=== PATIENT | male | born 1970 | race Asian ===

== ENCOUNTER 2025-04-18 10:10 | Outpatient (AMB) | payer OTHER, SELFPAY ==
--- NOTE | 2025-04-18 10:15 | MHC.OFFVIS ---
Vital Signs 04/18/25 10:20 04/18/25 10:26 Height 5 ft 3 in BP 137/85 Position Sitting Pulse 69 Intake Visit Reasons: 6 mnts Melt House Centrifugal Operator Required: Yes Melt House Centrifugal Operator Services: Melt House Centrifugal Operator Offered & Declined (Family will interpret ) Accompanied by: Family/Other Allergies No Known Allergies Allergy (Verified 04/18/25 10:21) Medication List - Last Reconciled 04/18/25 by Odette Zapata CNP atorvastatin 20 mg PO DAILY famotidine 20 mg PO BID losartan 50 mg PO DAILY memantine 10 mg PO BID multivitamin with folic acid 400 mcg (Daily-Stephen (with folic acid)) 1 tab PO DAILY oxycodone-acetaminophen 5-325 mg 1 tab PO BEDTIME PRN pantoprazole mg PO phenazopyridine 200 mg PO TID PRN pyridoxine (vitamin B6) 50 mg PO DAILY quetiapine 25 mg PO TID sertraline 50 mg PO DAILY tamsulosin 0.4 mg PO BEDTIME thiamine HCl (vitamin B1) 100 mg PO BID HPI Comments Details: 55-year-old man with h/o alcohol abuse, with h/o left PCom aneurysm coiling at [facility] in Jul. Since then, his right side was weak and he had difficulty talking. He could understand but could not speak much. He was doing okay. He occasionally had some lightheadedness that lasted few minutes. Balance was okay, no falls. No headaches. Mood was okay. He was emotional at times, and could become frustrated and agitated at times when he was trying to say something that was not understood.?He was still sleeping a lot during the day and was up during the night. [facility] Medical History (Updated 04/18/25 @ 10:19 by Odette Zapata CNP) Cerebral aneurysm Encephalopathy Depression H/O alcohol abuse Insomnia Aphasia Vascular dementia Review of Systems Const Denies chills, Denies daytime sleepiness, Reports difficulty sleeping, Denies fatigue, Denies fever(s), Denies frequent falls, Denies headache(s), Denies increased appetite, Denies poor appetite, Denies snoring, Denies weakness, Denies weight gain and Denies weight loss Eyes Denies loss of vision ENT Denies vertigo, Denies dizziness and Denies headache(s) Card Denies chest pain at rest, Denies chest pain with activity, Denies syncope, Denies leg edema and Denies palpitations Resp Denies snoring GI Denies constipation, Denies heartburn, Denies diarrhea and Denies nausea Denies urinary frequency, Denies urinary incontinence and Denies urinary urgency Musc Denies abnormal gait, Denies numbness and Denies tingling Skin/Breast Denies dry skin and Denies rash Neuro Denies abnormal gait, Denies vertigo, Denies dizziness, Denies syncope, Denies frequent falls, Denies headache(s), Denies lack of coordination, Denies loss of vision, Reports memory loss, Denies numbness, Denies restless legs, Denies seizure-like activity, Denies tingling, Denies paresthesias, Denies tremor(s) and Denies weakness Psych Reports anxiety, Reports depression, Denies auditory hallucinations, Reports memory loss, Denies visual hallucinations and Denies suicidal ideation Endo Denies fatigue and Denies palpitations Physical Exam Const Other: General Appearance:? normal, in no acute distress. Skin:? no rashes, no significant birthmarks. Heart:? S1, S2 normal, no murmurs. Lungs:? clear anteriorly and posteriorly. Extremities:? no edema. Psych:? alert, cooperative with exam. Neuro Other: Mental Status:?Alert and awake with minimal speech. He did not speak [place]ian, but even in his [place] language, family did not understand him. Has trouble following commands. Cranial Nerves:?Pupils are equal, round and reactive to light. External occular muscles are intact. Visual johnson are full. Face is symmetrical. Facial sensations are normal. Tongue is midline. Palate elevates symmetrically. Shoulder shrugging is normal. Hearing to bedside conversation is normal. Motor Examination:?R hemiparesis Sensory Exam:?....? Coordination:?No ataxia,?no titubation.? Gait Exam: Within normal limits. Extrapyramidal System:?No tremor, rigidity with normal facial expressions.? Pronator Drift:?Not present.? Involuntary Movements:?No tremors seen.? Speech:?Decreased. Results Reviewed Results Reviewed: EEG at off in March 2023: OK CT neck at [facility] in Jul 2022: ok CTA Brain WO at [facility] in Jul: 9mm L Pcom and 3mm R Pcom aneurysms Assessment & Plan Assessment & Plan (1) Vascular dementia: Code(s): F01.50 - Vascular dementia, unspecified severity, without behavioral disturbance, psychotic disturbance, mood disturbance, and anxiety Category: Medical Qualifiers: Dementia severity: unspecified severity Dementia behavioral or psychological symptom: unspecified whether behavioral, psychotic, or mood disturbance or anxiety Qualified Code(s): F01.50 - Vascular dementia, unspecified severity, without behavioral disturbance, psychotic disturbance, mood disturbance, and anxiety Plan: Continue memantine 10mg 1 table twice a day (2) Aphasia: Code(s): R47.01 - Aphasia Category: Medical Plan . Medications: New memantine 10 mg PO BID 180 tabs 1RF 90 days Discontinued memantine Discontinued Reason: Order 10 mg PO BID Coding Level of Care Code Est Pt Level 3 (87476) Diagnoses Vascular dementia, unspecified dementia severity, unspecified whether behavioral, psychotic, or mood disturbance or anxiety F01.50 Dementia severity: unspecified severity Dementia behavioral or psychological symptom: unspecified whether behavioral, psychotic, or mood disturbance or anxiety Aphasia R47.01
[2025-04-18 10:26] VITALS: BP 137/85; PULSE 69
--- OUTSIDE RECORDS SUMMARY | 2025-04-18 11:07 | XMS_ITS | Clinical Summary ---
Author Organization [facility] Address [address] [place] [address] Phone Care Team Providers Care Art Consultant Name Role Phone Antonia Guallpa MD Primary Care Provider [phone] Allergies Active Allergy Reactions Criticality Noted Date Comments Trazodone Cramps High 11/23/2018 Medications valproic acid (DEPAKENE) 250 mg capsule Take 2 Capsules by mouth 3 times daily. 06/21/20 24 Active thiamine 100 mg tablet Take 1 Tablet by mouth 2 times daily. 06/21/20 24 Active multivit-min/iro n/folic acid/K (ADULTS MULTIVITAMIN ORAL) Take 1 Tablet by mouth daily. 06/21/20 24 Active memantine (NAMENDA) 10 mg tablet Take 1 Tablet by mouth 2 times daily. Active desmopressin (DDAVP) 0.2 mg tablet TAKE ONE TABLET BY MOUTH IN THE EVENING 06/19/20 Active flavoxATE (URISPAS) 100 mg tablet TAKE ONE TABLET BY MOUTH EVERY 6 HOURS 06/19/20 20 Active phenazopyridine (PYRIDIUM) 200 mg tabletIndication s:Bladder spasms Take 1 tablet (200 mg total) by mouth 3 (three) times a day if needed for bladder spasms. 90 tablet 3 11/08/19 25 Active oxyCODONE-acetam inophen (PERCOCET) 5-325 mg per tablet Take 1 tablet by mouth at bedtime as needed for severe pain. Max Daily Amount: 1 tablet 28 tablet 03/07/20 25 Active atorvastatin (LIPITOR) 20 mg tablet Take 1 tablet (20 mg total) by mouth 1 (one) time each day. 90 tablet 3 03/15/20 25 Active famotidine (PEPCID) 20 mg tablet Take 1 tablet (20 mg total) by mouth 2 (two) times a day. 180 tablet 3 03/15/20 25 Active losartan (COZAAR) 50 mg tablet Take 1 tablet (50 mg total) by mouth 1 (one) time each day. 90 tablet 3 03/15/20 25 Active pantoprazole (PROTONIX) 40 mg EC tablet Take 1 tablet (40 mg total) by mouth 1 (one) time each day before breakfast. Do not crush, chew, or split. 30 tablet 5 03/15/20 25 Active QUEtiapine (SEROquel) 25 mg tablet Take 1 tablet (25 mg total) by mouth 3 (three) times a day. 45 tablet 5 03/29/20 25 Active QUEtiapine (SEROquel) 25 mg tablet Take 0.5 Tablets by mouth 3 times daily. 06/21/20 24 025 Discontinued Active Problems Problem Noted Date Diagnosed Date Vocal cord dysfunction 03/15/2025 Pre-op evaluation 11/17/2024 Assessment & Plan (11/17/2024 9:06 AM EST): Still not quite clear why they requested a preoperative evaluation but the patient does have some risk factors for coronary artery disease he is asymptomatic he can generate 4 METS of activity without chest pain or discomfort. He has never had any cardiovascular history. The chart keeps mentioning Brugada syndrome which is slightly more common in the population. But with the patient actually has is a early repolarization pattern which is fairly common in the population. He has had no symptomatic arrhythmias there is a high prevalence in the general population as usually incidental finding. The recommendations is for patients with incidental finding of early repolarization pattern on EKG without symptoms or evidence of ectopy after being hospitalized for such a prolonged period of time the recommendation is observation without therapy As far as his cardiovascular risks for coronary artery issues he has a Patel perioperative assessment risk of less than 1% for perioperative cardiac event As far as his hypertension is concerned his control is already in place with medical management. Asthma 08/26/2024 Hemorrhagic stroke (CMS/HCC V24, CMS/HCC V28) Chronic interstitial cystitis 05/25/2018 Hypertension 05/25/2018 Hypertriglyceridemia 05/25/2018 Lung nodule 07/26/2017 Depression 04/30/2017 Insomnia 04/30/2017 Esophageal reflux 01/27/2017 Vitamin D deficiency 04/22/2015 Gout 04/19/2015 Chronic constipation 01/01/2015 Rectal prolapse 11/05/2014 Brugada syndrome 06/08/2014 Allergic rhinitis 05/17/2014 Internal hemorrhoids 12/12/2013 Enlargement of liver 08/02/2013 Overview (08/26/2024): Left Lobe enlarged on CT BPH (benign prostatic hyperplasia) 07/28/2013 Nicotine dependence 12/25/2011 Encounters Date Type Department Care Team Description 03/15/2025 9:00 AM EDT Office Visit Internal Medicine [address] [phone] Antonia Guallpa MD Primary hypertension (Primary Dx); Hypertriglyceridemia; Gastroesophageal reflux disease, unspecified whether esophagitis present; Chronic interstitial cystitis; Vocal cord dysfunction 03/15/2025 Telephone Internal Medicine [facility] [address] [facility] [address] [place] [phone] Antonia Guallpa MD faxed order (L&C) 03/14/2025 Telephone Internal Medicine [facility] [address] [facility] [address] [place] [phone] Hong Willson [place] Appointment Reminder from Last 3 Months Immunizations Name Administration Dates Next Due MMR, measles mumps and rubel la Live (Priorix; M-M-R II) 12mo and older 05/25/2011,03/24/2011 Moderna SARS-CoV-2 COVID-19, mRNA, LNP-S, preservative free 04/24/2021,03/27/2021 Pneumococcal polysaccharide 23 valent (Pneumovax 23) 2yo and older 11/26/2011 Tdap Tetanus diptheria acell ular pertussis (Boostrix; Adacel) 7yo and older 11/26/2011 Surgical History Surgery Date Site/Laterality Comments COLONOSCOPY 2022 PROCEDURE: HISTORICAL COLONOSCOPY; COMMENT: rectal scar with prominent folds c/w previous surgery FEMORAL BYPASS to bring more blodflow to brain after stroke Medical History Medical History Date Comments Allergic rhinitis 05/17/2014 DX:Allergic rh initis Asthma DX:Asthma BPH (benign prostatic hyperplasia) 07/28/2013 DX:BPH (benign prostatic hyperplasia) Brugada syndrome 06/08/2014 DX:Brugada synd christiano Chronic constipation 01/01/2015 DX:Chronic constipation Chronic interstitial cystitis 05/25/2018 DX :Chronic interstitial cystitis Depression 04/30/2017 DX:Depression Enlargement of liver 08/02/2013 DX:Enlargem ent of liver; COMMENT: Left Lobe enlarged on CT Esophageal reflux 01/27/2017 DX:Esophageal reflux Gout 04/19/2015 DX:Gout History of treatment for tuberculosis 11/23/2018 DX:History of treatment for tuberculosis; COMMENT: 9 month treatment Hypertension 05/25/2018 DX:Hypertension Hypertriglyceridemia 05/25/2018 DX:Hypertri glyceridemia Insomnia 04/30/2017 DX:Insomnia Internal hemorrhoids 12/12/2013 DX:Internal hemorrhoids Lung nodule 07/26/2017 DX:Lung nodule Nicotine dependence 12/25/2011 DX:Nicotine dependence Rectal prolapse 11/05/2014 DX:Rectal prolap se Vitamin D deficiency 04/22/2015 DX:Vitamin D deficiency Feeding by G-tube (CMS/HCC V 24, CMS/HCC V28) DX:Feeding by G-tube ([facility]) CVA (cerebral vascular accid ent) (CMS/HCC V24, CMS/HCC V28) DX:CVA (cerebral vascular accident) ([facility]) Inability to speak DX:Inability to speak Functional dyspepsia DX:Function al dyspepsia History of CVA (cerebrovascular accident) DX:History of CVA (cerebrovascular accident) History of transfusion Chronic pain disorder Social History Tobacco Use Types Packs/Day Years Used Date Smoking Tobacco: Never Smokeless Tobacco: Never Alcohol Use Standard Drinks/Week Comments Not Currently 0 (1 standard drink = 0.6 oz pur e alcohol) Sex and Gender Information Value Date Recorded Sex Assigned at Male 09/30/2024 5:55 PM EST Legal Sex Male 9:17 AM EST Gender Identity Male 09/30/2024 5:55 PM EST Sexual Orientation Straight 09/30/2024 5: 55 PM EST Obstetrics History Last Filed Vital Signs Vital Sign Reading Time Taken Comments Blood Pressure 108/82 03/15/2025 8:55 AM EDT Pulse 75 03/15/2025 8:55 AM EDT Temperature 36.3 C (97.3 F) 03/15/2025 8:55 AM EDT Respiratory Rate 18 09/30/2024 9:19 PM EST Oxygen Saturation 99% 03/15/2025 8:55 AM EDT Inhaled Oxygen Concentration - - Weight 63 kg (139 lb) 03/15/2025 8:55 AM EDT Height 165.1 cm (5' 5 ) 11/17/2024 8:09 AM EST Body Mass Index 23.13 11/17/2024 8:09 AM EST Plan of Treatment Upcoming Encounters Date Type Department Care Team (Late st Contact Info) Description 09/13/2025 8:30 AM EST Office Visit Internal Medicine - [place] [address] [place] [address] Antonia Guallpa MD [address] [place] [address] Health Maintenance Due Date Last Done Comments Hepatitis B Vaccines (1 of 3 - 19+ 3-dose series) 1990 Pneumococcal Vaccine: 50+ Years (2 of 2 - PCV) 11/25/2012 11/26/2011 Zoster Vaccines (1 of 2) 2021 DTaP,Tdap,and Td Vaccines (2 - Td or Tdap) 11/25/2021 11/26/2011 HIV Screening 09/05/2022 Hepatitis C Screening 09/05/2022 Social Influencers of Health Screening 09/05/2022 COVID-19 Vaccine ( season) 2024 10/28/2021, 04/24/2021, 03/27/2021 Depression Screening 09/27/2024 06/22/2024 Influenza Vaccine (#1) 2025 Hypertension/CHF/CAD Annual BMP Blood Test 03/15/2026 03/15/2025, 09/30/2024, 06/22/2024, Additional history exists Cholesterol Screening (Lipid Panel) 03/15/2030 03/15/2025, 06/22/2024, 06/22/2024 Colorectal Cancer Screening: Colonoscopy 02/29/2032 2022 MMR Vaccines Aged Out 05/25/2011, 03/24/2011 No lo nger eligible based on patient's age to complete this topic HIB Vaccines Aged Out No longer eligi ble based on patient's age to complete this topic HPV Vaccines Aged Out No longer eligi ble based on patient's age to complete this topic Hepatitis A Vaccines Aged Out No long er eligible based on patient's age to complete this topic IPV Vaccines Aged Out No longer eligi ble based on patient's age to complete this topic Meningococcal ACWY Vaccine Aged Out N o longer eligible based on patient's age to complete this topic Meningococcal B Vaccine Aged Out No l onger eligible based on patient's age to complete this topic RSV Immunization Patients Under 20 months Aged Out No longer eligible based on patient's age to complete this topic Varicella Vaccines Aged Out No longer eligible based on patient's age to complete this topic Procedures Procedure Name Priority Date/Time Associated Diagnosis Comments LIPID PANEL WITH REFLEX TO DIRECT LDL Routine 03/15/2025 9:25 AM EDT Primary hypertension Hypertriglyceridem ia COMPREHENSIVE METABOLIC PANEL Routine 03/15/2025 9:25 AM EDT Primary hypertension Hypertriglyceridem ia DEPRESSION SCREENING Routine 06/22/2024 COLONOSCOPY Routine 2022 from Last 3 Months or Most Recently Relevant to Health Maintenance Results * (ABNORMAL) Lipid panel with reflex to direct LDL (03/15/2025 9:25 AM EDT) Cholesterol 147 0 - 200 mg/dL LAB CHEMISTRY METHOD 03/15/2025 3:10 PM EDT [facility] Triglycerides 315(H) 0 - 150 mg/dL LAB CHEMISTRY METHOD 03/15/2025 3:10 PM EDT [facility] HDL 42 >=40 mg/dL LAB CHEMISTRY METHOD 03/15/2025 3:10 PM EDT [facility] LDL Calculated 42 0 - 100 mg/dL LAB CHEMISTRY METHOD 03/15/2025 3:10 PM EDT [facility] VLDL Cholesterol Usama 63 mg/dL LAB CHEMISTRY METHOD 03/15/2025 3:10 PM EDT [facility] Non HDL Chol. (LDL+VLDL) 105 <145 mg/dL LAB CHEMISTRY METHOD 03/15/2025 3:10 PM EDT [facility] Chol/HDL Ratio 3.5 0.0 - 4.4 LAB CHEMISTRY METHOD 03/15/2025 3:10 PM T [facility] Blood Venous blood specimen / Unknown Venipuncture / Unknown 03/15/2025 9:25 AM EDT 03/15/2025 9:25 AM EDT us Antonia Guallpa MD LAB BLOOD ORDERABLES Final Res ult [facility] [address] [place] [address], [place] [phone] * Comprehensive metabolic panel (03/15/2025 9:25 AM EDT) Sodium 143 133 - 145 mmol/L LAB CHEMISTRY METHOD 03/15/2025 3:10 PM [facility] Potassium 4.1 3.5 - 5.5 mmol/L LAB CHEMISTRY METHOD 03/15/2025 3:10 PM [facility] Chloride 107 96 - 110 mmol/L LAB CHEMISTRY METHOD 03/15/2025 3:10 PM [facility] CO2 28 21 - 32 mmol/L LAB CHEMISTRY METHOD 03/15/2025 3:10 PM [facility] Anion Gap 8 3 - 11 LAB CHEMISTRY METHOD 03/15/2025 3:10 PM [facility] Glucose 86 70 - 100 mg/dL LAB CHEMISTRY METHOD 03/15/2025 3:10 PM [facility] BUN 10 5 - 25 mg/dL LAB CHEMISTRY METHOD 03/15/2025 3:10 PM [facility] Creatinine 1.21 0.70 - 1.30 mg/dL LAB CHEMISTRY METHOD 03/15/2025 3:10 PM EDT [facility] eGFR 71 >=60 mL/min/1. 73m2 LAB CHEMISTRY METHOD 03/15/2025 3:10 PM T [facility] Comment:Calculation based on the Chronic Kidney Disease Epidemiology Collaboration (CKD-EPI) equation refit without adjustment for race. BUN/Creatinine Ratio 8.3 LAB CHEMISTRY METHOD 03/15/2025 3:10 PM EDT [facility] Calcium 9.8 8.5 - 10.5 mg/dL LAB CHEMISTRY METHOD 03/15/2025 3:10 PM T [facility] AST (SGOT) 16 10 - 42 unit/L LAB CHEMISTRY METHOD 03/15/2025 3:10 PM [facility] ALT (SGPT) 25 10 - 60 unit/L LAB CHEMISTRY METHOD 03/15/2025 3:10 PM T [facility] Alkaline Phosphatase 83 42 - 121 unit/L LAB CHEMISTRY METHOD 03/15/2025 3:10 PM T [facility] Total Protein 7.7 6.0 - 8.0 g/dL LAB CHEMISTRY METHOD 03/15/2025 3:10 PM [facility] Albumin 4.2 3.2 - 5.0 g/dL LAB CHEMISTRY METHOD 03/15/2025 3:10 PM [facility] Total Bilirubin 1.3 0.0 - 1.4 mg/dL LAB CHEMISTRY METHOD 03/15/2025 3:10 PM [facility] Blood Venous blood specimen / Unknown Venipuncture / Unknown 03/15/2025 9:25 AM EDT 03/15/2025 9:25 AM EDT us Antonia Guallpa MD LAB BLOOD ORDERABLES Final Res ult [facility] [address] [place] [address], * Depression Screening (06/22/2024) Depression Screening abstracted Historical Provider HEALTH MAINTENANCE Final Result * Colonoscopy (2022) Colonoscopy abstracted, no interpretation Anatomical Region Laterality Modality Other Historical Provider HEALTH MAINTENANCE Final Result from Last 3 Months or Most Recently Relevant to Health Maintenance [place] [address] [place] [address] [employer] Care Teams Art Consultant Relationship Specialty Start Date End Date Antonia Guallpa MD [address] [phone] PCP - General Internal Medicine 03/07/25
== END 2025-04-18 10:33 | disposition home or self-care (01) ==
LOC: HO.HSM 10:11
PROVIDERS: PCP Internal Medicine; Visit Provider Registered Nurse
DX: F01.50 Vascular dementia, unspecified severity, without behavioral disturbance, psychotic disturbance, mood disturbance, and anxiety (principal); R47.01 Aphasia
CPT/HCPCS: 99213

== ENCOUNTER → 2025-04-18 10:10 | Outpatient (BNVA) | payer OTHER, SELFPAY | PROVIDERS: PCP Internal Medicine; Visit Provider Registered Nurse | DX: F01.50 Vascular dementia, unspecified severity, without behavioral disturbance, psychotic disturbance, mood disturbance, and anxiety (principal); R47.01 Aphasia | CPT/HCPCS: 99212 ==